=== PATIENT | male | born 2000 ===

== ENCOUNTER 2022-10-26 13:35 | Day surgery (SDC) | payer OTHER ==
[~2022-10-26] VITALS: Ht 167.6 cm; Wt 72.0 kg
[2022-10-26] MEDS ORDERED: ATARAX 25MG25 MG/TAB PO (14:02)
[2022-10-26] MEDS ORDERED: FLEXERIL 1010 MG/TAB PO (14:02)
[2022-10-26 14:50] VITALS: BP 112/69; PULSE 63; TEMP 97.9
--- NOTE | 2022-10-26 14:57 | NUR ---
1357 PT AMBULATORY TO BAY 1 WITH STEADY GAIT, BREATHING EVEN AND UNLABORED. PT IS ALERT AND ORIENTED. CONSENTS REVIEWED AND SIGNED BY PT. IV ESTABLISHED. LR INFUSING VIA GRAVITY AT KVO. CALL LIGHT IN REACH.
[2022-10-26 15:20] VITALS: BP 114/86; PULSE 68; TEMP 98.2
[2022-10-26 15:35] VITALS: BP 111/72; PULSE 66
[2022-10-26 15:50] VITALS: BP 110/78; PULSE 74
--- NOTE | 2022-10-26 16:00 | NUR ---
1520 RETURNS TO ROOM 1 PER CART. AWAKE, ALERT. RESP UNLABORED. AMBULATES TO RECLINER WITH STANDBY ASSIST. DENIES NAUSEA, ABD PAIN OR DYSPHAGIA. VITAL SIGNS OBTAINED. CALL LIGHT AT SIDE. 1535 TOLERATES PO WATER AND MUFFIN WITHOUT NAUSEA. SWALLOWS WITHOUT DIFFICULTY. 1537 DR. MILLARD HERE TO VISIT WITH PATIENT. 1545 DISCHARGE INSTRUCTIONS REVIEWED. PATIENT DENIES LANGUAGE BARRIER. COPY OF INSTRUCTIONS PROVIDED IN DISCHARGE FOLDER 1558 DRESSES SELF
== END 2022-10-26 16:05 | disposition home or self-care (01) ==
LOC: SDCO 13:35
DX: K21.9 Gastro-esophageal reflux disease without esophagitis (principal); D72.18 Eosinophilia in diseases classified elsewhere; K25.7 Chronic gastric ulcer without hemorrhage or perforation; K92.1 Melena; R13.10 Dysphagia, unspecified; R19.7 Diarrhea, unspecified; K64.1 Second degree hemorrhoids
CPT/HCPCS: J2704; J7120